=== PATIENT | male | born 1960 | race African-American/Black ===

== ENCOUNTER 2017-02-16 04:04 | Emergency (ER) | payer OTHER ==
[~2017-02-16] VITALS: Ht 175.3 cm; Wt 85.9 kg
[~2017-02-16 04:04] MED LIST: CHOLESTEROL PILL PO; GLUCOPHAGE850 MG PO; [UNRECOGNIZED DRUG - OTHER] PO
[2017-02-16 05:35] LABS: HEMATOCRIT 42.7 % (38.0-50.0); MCH 29.6 PG (29.0-34.0); MCHC 33.3 G/DL (30.0-36.0); PLATELET COUNT 260 K/uL (156-360); RBC DIS.WIDTH-CV 13.8 % (11.8-14.6); RBC DIS.WIDTH-SD 45.1 % (39-53); WHITE BLOOD COUNT 15.4 K/uL (4.1-10.2)
[2017-02-16 05:36] LABS: CHLORIDE 105 mEq/L (99-109); POTASSIUM 3.5 mEq/L (3.7-5.4); SODIUM 139 mEq/L (136-147)
[2017-02-16 05:37] LABS: GLUCOSE 153 mg/dL (70-99)
[2017-02-16 05:39] LABS: ANION GAP 9 MEQ/L (2-14)
[2017-02-16 05:41] LABS: GFR ESTIMATE (CALCULATED) > 59 mL/min/
[2017-02-16 05:42] LABS: UREA NITROGEN (BUN) 14 mg/dL (9-23)
[2017-02-16] MEDS ORDERED: TYLENOL WITH C1 EACH PO (06:34)
[2017-02-16 07:01] VITALS: BP 113/34
== END 2017-02-16 07:03 | disposition home or self-care (01) ==
LOC: EME 04:04
DX: S90.32XA Contusion of left foot, initial encounter (principal); X50.1XXA Overexertion from prolonged static or awkward postures, initial encounter; R42 Dizziness and giddiness; R11.0 Nausea; E78.5 Hyperlipidemia, unspecified; E11.9 Type 2 diabetes mellitus without complications; Z79.84 Long term (current) use of oral hypoglycemic drugs; F17.200 Nicotine dependence, unspecified, uncomplicated
CPT/HCPCS: 71020; 73630; 80048; 85027; 99281; 99283